=== PATIENT | female | born 1995 | race Caucasian/White ===

== ENCOUNTER 2018-01-31 10:19 | Emergency (ER) | END 2018-01-31 12:48 | disposition home or self-care (01) ==

== ENCOUNTER 2018-09-20 09:33 | Emergency (ER) | payer OTHER ==
[~2018-09-20] VITALS: Ht 160 cm; Wt 76.1 kg
[~2018-09-20 09:33] MED LIST: CIPR500T4 PO; DOCU-144 PO; FAMO-96 PO
[2018-09-20 09:39] VITALS: BP 128/76; PULSE 80; RESP 18; Ht 160 cm; Wt 76.1 kg
[2018-09-20] MEDS ORDERED: ACETAMINOPHEN 325 MG TAB PO STA (10:37)
--- NOTE | 2018-09-20 11:46 | ERD ---
ER Documentation Chief Complaint Chief Complaint vag bleed x 2 days, 5 weeks , seen at [facility] yesterday HPI This is a 23-year-old female patient presents emergency room with complaint of vaginal bleeding, patient is 5 weeks . States she was at [facility] yesterday for the same and received blood work and an ultrasound but did not bring the results to the visit today patient states that she returns to this emergency room because it is closer to her home and she is concerned for increased bleeding and abdominal cramping. , first via without complications, receives care from [facility] in [place]. Patient alert, appropriate. ROS All systems reviewed and are negative except as per history of present illness. Medications Home Meds Active Scripts Cephalexin* (Keflex*) 500 Mg Capsule, 500 MG PO BID for CYSTITIS for 5 Days, #10 CAP Prov:OKSANA EASTMAN NP 09/20/18 Acetaminophen* (Tylophen*) 500 Mg Capsule, 2 CAP PO Q8H PRN for PAIN AND OR ELEVATED TEMP, #20 CAP Prov:OKSANA EASTMAN NP 09/20/18 Docusate Sodium* (Colace*) 100 Mg Capsule, 100 MG PO TID, #30 CAP Prov:SAMIR JEROME PA-C 01/31/18 Ciprofloxacin Hcl* (Ciprofloxacin Hcl*) 500 Mg Tablet, 500 MG PO BID for 7 Days, TAB Prov:SAMIR JEROMEC 01/31/18 Famotidine* (Pepcid*) 20 Mg Tablet, 20 MG PO QHS for 5 Days, TAB Prov:SAMIR JEROMEC 01/31/18 Allergies Allergies: Coded Allergies: No Known Allergy (Unverified , 09/20/18) PMhx/Soc Medical and Surgical Hx: pt denies Medical Hx, pt denies Surgical Hx Hx Alcohol Use: No Hx Substance Use: No Hx Tobacco Use: No FmHx Family History: No diabetes, No coronary disease, No other Physical Exam Vitals Vital Signs Date Temp Pulse Resp B/P (MAP) Pulse Ox O2 O2 Flow FiO2 Time Delivery Rate 09/20/18 97.8 80 18 128/76 98 09:39 (93) Physical Exam Const: No acute distress Head: Atraumatic Eyes: Normal Conjunctiva, PERRL ENT: Normal External Ears, Nose and Mouth. Pharynx pink, moist. Neck: Full range of motion. No meningismus. No adenopathy Resp: Clear to auscultation bilaterally Cardio: Regular rate and rhythm, no murmurs Abd: Soft, non distended. Normal bowel sounds, + suprapubic tenderness Skin: No petechiae or rashes Back: No midline or flank tenderness, no CVT Ext: No cyanosis, or edema Neur: Awake and alert Psych: Normal Mood and Affect Result Diagram: 09/20/18 1046 09/20/18 1046 Results 24 hrs Laboratory Tests Test 09/20/18 10:46 White Blood Count 10.0 10^3/ul Red Blood Count 4.84 10^6/ul Hemoglobin 13.0 g/dl Hematocrit 41.2 % Mean Corpuscular Volume 85.1 fl Mean Corpuscular Hemoglobin 26.9 pg Mean Corpuscular Hemoglobin Concent 31.6 g/dl Red Cell Distribution Width 13.4 % Platelet Count 336 10^3/UL Mean Platelet Volume 8.8 fl Immature Granulocytes % 0.300 % Neutrophils % 63.9 % Lymphocytes % 30.1 % Monocytes % 4.8 % Eosinophils % 0.5 % Basophils % 0.4 % Nucleated Red Blood Cells % 0.0 /100WBC Immature Granulocytes # 0.030 10^3/ul Neutrophils # 6.4 10^3/ul Lymphocytes # 3.0 10^3/ul Monocytes # 0.5 10^3/ul Eosinophils # 0.1 10^3/ul Basophils # 0.0 10^3/ul Nucleated Red Blood Cells # 0.0 10^3/ul Urine Color RED Urine Clarity CLOUDY Urine pH 9.0 Urine Specific [place] 1.009 Urine Ketones NEGATIVE mg/dL Urine Nitrite NEGATIVE mg/dL Urine Bilirubin NEGATIVE mg/dL Urine Urobilinogen NEGATIVE mg/dL Urine Leukocyte Esterase 1+ Thong/ul Urine Microscopic RBC > 182 /HPF Urine Microscopic WBC 32 /HPF Urine Squamous Epithelial Cells FEW /HPF Urine Hemoglobin 3+ mg/dL Urine Glucose NEGATIVE mg/dL Urine Total Protein 2+ mg/dl Sodium Level 143 mmol/L Potassium Level 3.7 mmol/L Chloride Level 107 mmol/L Carbon Dioxide Level 28 mmol/L Anion Gap 8 Blood Urea Nitrogen 6 mg/dl Creatinine 0.47 mg/dl Est Glomerular Filtrat Rate mL/min > 60 mL/min Glucose Level 92 mg/dl Calcium Level 8.9 mg/dl Total Bilirubin 0.4 mg/dl Direct Bilirubin 0.00 mg/dl Indirect Bilirubin 0.4 mg/dl Aspartate Amino Transf (AST/SGOT) 23 IU/L Alanine Aminotransferase (ALT/SGPT) 37 IU/L Alkaline Phosphatase 70 IU/L Total Protein 8.0 g/dl Albumin 4.3 g/dl Globulin 3.70 g/dl Albumin/Globulin Ratio 1.16 Beta HCG, Quantitative 32.9 mIU/ml Current Medications Medications Dose Sig/Dasha Start Time Status Last (Trade) Ordered Route PRN Stop Time Admin Dose Reason Admin 650 mg ONCE STAT 09/20/18 DC 09/20/18 Acetaminophen PO 10:37 10:42 (Tylenol 09/20/18 10:39 Tab) Procedures/MDM PROCEDURES/MDM DIAGNOSTIC IMAGING: Read by radiologist. US OB Endometrium not well seen, appears thickened, no IUP, correlate with serial beta H CG levels, ovaries not visualized, there are no complex adnexal masses, no free fluid. PROCEDURES: Pelvic exam, large blood clot in cervical office, easily removed, no bleeding fr om office after removal of clots LAB INTERPRETATION: No leukocytosis, no anemia, no electrolyte imbalance, no nephropathy, no hypoglycemia, no transaminitis, urinalysis; positive leukocytes, positive white blood cells. Beta hCG 32. -Medications: Tylenol Patient tolerated medication well with no adverse reactions. Patient reported improvement in pain. MDM: Patient remained stable throughout the ER course. Patient presents with vaginal bleeding for the last day. Differential includes early normal , ectopic , failed . She will discharged home with [facility] for recheck of hormones to further evaluate condition. Patient states that she has an appointment with a OB in [place] tomorrow. She is to return sooner for fevers, hemorrhaging, new worsening symptoms. Patient will be treated for UTI. Current signs or symptoms do not suggest appendicitis, acute surgical abdomen, additional concerning signs or symptoms or conditions. The patient was stable with no new complaints during the ER course. Clinically, there is no current evidence to suggest meningitis, sepsis, acute abdomen, pneumonia, stroke, acute coronary syndrome, pulmonary embolism, aortic dissection or any other emergent condition appearing to require further evaluation or hospitalization. Patient counseled regarding my diagnostic impression and care plan. Prior to discharge all questions answered. Pt agrees with treatment plan and understands strict return precautions. Precautionary instructions provided including instructions to return to the ER if not improving or for any worsening or changing symptoms or concerns. DISPOSITION and PLAN: RX: Tylenol, Keflex The patient has been discharge home to follow-up with community physician. Departure Diagnosis: Primary Impression: Complete miscarriage Additional Impression: Acute cystitis during Trimester: first trimester Qualified Codes: O23.11 - Infections of bladder in , first trimester Condition: Stable OKSANA EASTMAN NP Sep 20, 2018 11:46
[2018-09-20] MEDS ORDERED: ACET500C5 PO (12:56)
[2018-09-20] MEDS ORDERED: CEPH-443 PO (13:02)
== END 2018-09-20 13:10 | disposition home or self-care (01) ==
LOC: FTE 09:33
DX: O23.11 Infections of bladder in pregnancy, first trimester (principal); O03.9 Complete or unspecified spontaneous abortion without complication
CPT/HCPCS: 36415; 76801; 76817; 80053; 81001; 84702; 85025; 86900; 86901; Z7502; Z7610